=== PATIENT | female | born 1950 | race Caucasian/White ===

== ENCOUNTER 2017-12-30 16:31 | Inpatient (IN) | payer MEDICARE, OTHER ==
[~2017-12-30] VITALS: Ht 160 cm; Wt 64.1 kg
[2017-12-30 17:01] LABS: INR 1.1 INR; PROTHROMBIN TIME 11.5 SECONDS (9.0-12.0)
[2017-12-30 17:13] LABS: ALANINE AMINOTRANSFERASE 13 U/L (12-78); ALBUMIN 1.8 G/DL (3.4-5.0); ALBUMIN/GLOBULIN RATIO 0.4 (1.1-1.5); ALKALINE PHOSPHATASE 87 IU/L (46-116); ANION GAP 13 (8-16); ASPARTATE AMINO TRANSFERASE 24 U/L (10-37); BILIRUBIN,TOTAL 0.8 MG/DL (0.1-1.0); BLOOD UREA NITROGEN 15 MG/DL (7-18); BUN/CREATININE RATIO 15.2 (6.6-38.0); CALCIUM 8.7 MG/DL (8.5-10.1); CHLORIDE 100 MMOL/L (99-107); CREATININE 0.99 MG/DL (0.40-0.90); GLUCOSE 125 MG/DL (70-104); POTASSIUM 3.3 MMOL/L (3.5-5.1); SODIUM 141 MMOL/L (135-145); TOTAL CARBON DIOXIDE 27.8 MMOL/L (24-32); TOTAL PROTEIN 6.8 G/DL (6.4-8.2); eGFR 56 ML/MIN
[2017-12-30 17:54] LABS: BASOPHILS % (AUTO) 0.5 % (0-1); EOSINOPHILS % (AUTO) 0.3 % (0-6); HEMATOCRIT 32.8 % (35.0-45.0); HEMOGLOBIN 11.1 g/dl (12.0-16.0); LYMPHOCYTES # (AUTO) 1.4 X10'3 (1.1-4.8); LYMPHOCYTES % (AUTO) 26.5 % (21-51); MEAN CORPUSCULAR HEMOGLOBIN 35.7 PG (27.0-31.0); MEAN CORPUSCULAR HGB CONC 33.9 % (33.0-36.5); MEAN CORPUSCULAR VOLUME 105.1 FL (78-98); MEAN PLATELET VOLUME 9.8 FL (7.4-10.4); MONOCYTES # (AUTO) 0.4 X10'3 (0-0.9); MONOCYTES % (AUTO) 7.5 % (2-12); NEUTROPHILS # (AUTO) 3.3 X10'3 (1.8-7.7); NEUTROPHILS % (AUTO) 65.2 % (42-75); PLATELET COUNT 250 X10'3 (140-440); RED BLOOD COUNT 3.12 X10'6 (4.20-5.60); RED CELL DISTRIBUTION WIDTH 13.1 % (11.5-14.5); WHITE BLOOD COUNT 5.1 X10'3 (4.5-11.0)
[2017-12-30 17:55] LABS: CLARITY,URINE CLOUDY (Clear); COLOR,URINE YELLOW (Yellow); GLUCOSE, URINE NEGATIVE (Neg); KETONES,URINE NEGATIVE (Neg); LEUKOCYTE ESTERASE ,URINE LARGE (Neg); NITRITES, URINE POSITIVE (Neg); OCCULT BLOOD,URINE NEGATIVE (Neg); PROTEIN,URINE TRACE mg/dl (Neg)
[2017-12-30 17:59] LABS: UA COLLECTION TYPE NON-SPECIFIED
[2017-12-30 18:00] LABS: BACTERIA,URINE 3+ /HPF (Neg); SQUAMOUS EPITHELIAL CELL,UR MODERATE /LPF (FEW)
[2017-12-30 18:01] LABS: RBC,URINE 0-2 /HPF (0-2); WBC,URINE TNTC /HPF (0-4)
[2017-12-30 18:06] LABS: URINE AMPHETAMINE SCREEN NEGATIVE (Neg); URINE BARBITUATE SCREEN NEGATIVE (Neg); URINE BENZODIAZEPINES SCREEN NEGATIVE (Neg); URINE CANNABINOID SCREEN NEGATIVE (Neg); URINE COCAINE SCREEN NEGATIVE (Neg); URINE METHADONE SCREEN NEGATIVE (Neg); URINE OPIATE SCREEN NEGATIVE (Neg); URINE PHENCYCLIDINE SCREEN NEGATIVE (Neg)
[2017-12-30 18:18] LABS: ETHANOL < 0.010 GM/DL (0.0-0.010); LIPASE 136 U/L (73-393); MAGNESIUM 1.9 MG/DL (1.5-2.4)
[2017-12-30] MEDS ORDERED: CefTRIAXone 2gm/D5W 50ml 50 ML IV ONE (18:25)
[2017-12-30] MEDS ORDERED: lactulose 20gm/30ml cup PO ONE (18:25)
[2017-12-30] MEDS ORDERED: normal saline 1000ML IV soln IVB ONE (18:25)
[2017-12-30] MEDS ORDERED: NO HOME MEDS (18:55)
[2017-12-30] MEDS ORDERED: haloperidol lactate 5mg/ml inj IM PRN (20:15)
[2017-12-30] MEDS ORDERED: dextrose 50%-water 50ml dispensing syringe IV PRN (20:15)
[2017-12-30] MEDS ORDERED: magnesium hydroxide 30ml (MOM) UD suspension PO PRN (20:15)
[2017-12-30] MEDS ORDERED: LORazepam 1 MG tablet PO PRN (20:15)
[2017-12-30] MEDS ORDERED: acetaminophen 325mg tablet PO PRN (20:15)
[2017-12-30] MEDS ORDERED: thiamine 100mg/ml 2ml inj. IV ONE ×2 (20:15→20:45)
[2017-12-30] MEDS ORDERED: bisacodyl 10mg suppository rectal RC PRN (20:15)
[2017-12-30] MEDS ORDERED: NORMAL SALINE IV ONE (20:45)
[2017-12-30] MEDS ORDERED: THIAMINE IV ONE (20:45)
[2017-12-30 22:00] VITALS: BP 101/54
[2017-12-31] VITALS (8 sets, daily range): BP systolic 72–97; BP diastolic 42–59
[2017-12-31] MEDS: lactulose 20gm/30ml cup PO SCH ×2 (02:00→07:42)
[2017-12-31 05:50] LABS: BASOPHILS % (AUTO) 0.3 % (0-1); EOSINOPHILS % (AUTO) 0.8 % (0-6); HEMATOCRIT 27.7 % (35.0-45.0); HEMOGLOBIN 9.6 g/dl (12.0-16.0); LYMPHOCYTES % (AUTO) 39.8 % (21-51); MEAN CORPUSCULAR HGB CONC 34.7 % (33.0-36.5); MEAN CORPUSCULAR VOLUME 103.9 FL (78-98); MONOCYTES # (AUTO) 0.5 X10'3 (0-0.9); MONOCYTES % (AUTO) 9.1 % (2-12); NEUTROPHILS # (AUTO) 2.5 X10'3 (1.8-7.7); PLATELET COUNT 197 X10'3 (140-440); RED BLOOD COUNT 2.67 X10'6 (4.20-5.60); RED CELL DISTRIBUTION WIDTH 13.6 % (11.5-14.5)
[2017-12-31 07:01] LABS: ALANINE AMINOTRANSFERASE 11 U/L (12-78); ALBUMIN 1.3 G/DL (3.4-5.0); ALBUMIN/GLOBULIN RATIO 0.3 (1.1-1.5); ALKALINE PHOSPHATASE 64 IU/L (46-116); ANION GAP 7 (8-16); ASPARTATE AMINO TRANSFERASE 18 U/L (10-37); BILIRUBIN,TOTAL 0.5 MG/DL (0.1-1.0); BLOOD UREA NITROGEN 14 MG/DL (7-18); BUN/CREATININE RATIO 16.1 (6.6-38.0); CALCIUM 7.5 MG/DL (8.5-10.1); CHLORIDE 105 MMOL/L (99-107); CREATININE 0.87 MG/DL (0.40-0.90); GLUCOSE 87 MG/DL (70-104); MAGNESIUM 1.8 MG/DL (1.5-2.4); PHOSPHORUS 3.3 MG/DL (2.3-4.5); SODIUM 142 MMOL/L (135-145); TOTAL CARBON DIOXIDE 29.9 MMOL/L (24-32); TOTAL PROTEIN 5.3 G/DL (6.4-8.2); eGFR 65 ML/MIN
[2017-12-31 07:16] LABS: POTASSIUM 2.7 MMOL/L (3.5-5.1)
[2017-12-31] MEDS ORDERED: potassium Cl 40MEQ/NS 500ml 500 ML IV PRN (07:35)
[2017-12-31] MEDS ORDERED: potassium Cl 20 mEq SR tablet PO PRN ×2 (07:35)
[2017-12-31] MEDS: furosemide 10 MG/1 ML 10ml inj IV SCH (08:00)
[2017-12-31] MEDS: CefTRIAXone/D5W-Rocephin 1gm 50 ML IV SCH (08:12)
[2017-12-31] MEDS: spironolactone 25 MG tablet PO SCH (08:12)
[2017-12-31 17:12] LABS: LYMPHOCYTES,BODY FLUID 80 %; MONOCYTES,BODY FLUID 19 %; NEUTROPHILS,BODY FLUID 1 %
[2017-12-31 17:13] LABS: BF MESOTHELIAL CELLS FEW; BF RBC COUNT 60 /CU MM; BF WBC COUNT 121 /CU MM (0-1000); BFAPPEAR HAZY; BFCOLOR YELLOW; BFVOLUME 48 ML
[2017-12-31] MEDS: potassium Cl 40MEQ/NS 500ml 500 ML IV PRN ×2 (17:28→23:34)
[2017-12-31] MEDS: thiamine 100mg tablet PO SCH (20:05)
[2017-12-31] MEDS: lactobacillus rhamnosus 10,000 MMU CELLS/CAPSULE PO SCH (20:05)
[2018-01-01 02:00] VITALS: BP 91/55
[2018-01-01 05:41] LABS: BASOPHILS # (AUTO) 0.1 X10'3 (0-0.2); BASOPHILS % (AUTO) 1.1 % (0-1); HEMATOCRIT 29.8 % (35.0-45.0); HEMOGLOBIN 10.1 g/dl (12.0-16.0); LYMPHOCYTES # (AUTO) 1.9 X10'3 (1.1-4.8); LYMPHOCYTES % (AUTO) 37.3 % (21-51); MEAN CORPUSCULAR HEMOGLOBIN 35.8 PG (27.0-31.0); MEAN CORPUSCULAR HGB CONC 33.9 % (33.0-36.5); MEAN CORPUSCULAR VOLUME 105.4 FL (78-98); MEAN PLATELET VOLUME 9.3 FL (7.4-10.4); MONOCYTES # (AUTO) 0.4 X10'3 (0-0.9); MONOCYTES % (AUTO) 7.7 % (2-12); NEUTROPHILS # (AUTO) 2.7 X10'3 (1.8-7.7); NEUTROPHILS % (AUTO) 52.9 % (42-75); PLATELET COUNT 212 X10'3 (140-440); RED BLOOD COUNT 2.82 X10'6 (4.20-5.60); RED CELL DISTRIBUTION WIDTH 13.5 % (11.5-14.5); WHITE BLOOD COUNT 5.1 X10'3 (4.5-11.0)
[2018-01-01 06:36] LABS: ALANINE AMINOTRANSFERASE 9 U/L (12-78); ALBUMIN 1.3 G/DL (3.4-5.0); ALBUMIN/GLOBULIN RATIO 0.3 (1.1-1.5); ALKALINE PHOSPHATASE 64 IU/L (46-116); ANION GAP 5 (8-16); ASPARTATE AMINO TRANSFERASE 17 U/L (10-37); BILIRUBIN,TOTAL 0.5 MG/DL (0.1-1.0); BLOOD UREA NITROGEN 11 MG/DL (7-18); BUN/CREATININE RATIO 13.4 (6.6-38.0); CALCIUM 8.2 MG/DL (8.5-10.1); CHLORIDE 108 MMOL/L (99-107); CREATININE 0.82 MG/DL (0.40-0.90); GLUCOSE 80 MG/DL (70-104); MAGNESIUM 1.7 MG/DL (1.5-2.4); POTASSIUM 4.2 MMOL/L (3.5-5.1); SODIUM 143 MMOL/L (135-145); TOTAL CARBON DIOXIDE 29.7 MMOL/L (24-32); TOTAL PROTEIN 5.3 G/DL (6.4-8.2); eGFR 70 ML/MIN
[2018-01-01 06:39] VITALS: BP 99/56
[2018-01-01] MEDS: furosemide 10 MG/1 ML 10ml inj IV SCH (07:19)
[2018-01-01] MEDS: lactobacillus rhamnosus 10,000 MMU CELLS/CAPSULE PO SCH ×2 (07:29→19:32)
[2018-01-01] MEDS: thiamine 100mg tablet PO SCH ×2 (07:29→19:32)
[2018-01-01] MEDS: CefTRIAXone/D5W-Rocephin 1gm 50 ML IV SCH (07:30)
[2018-01-01] MEDS: folic acid 1mg tablet PO SCH (07:30)
[2018-01-01] MEDS: multivitamins, therapeutics tablet PO SCH (07:30)
[2018-01-01] MEDS: spironolactone 25 MG tablet PO SCH (07:30)
[2018-01-01] MEDS: diatr meglu/diatrizoate 30ml oral sol.-(3 dose) bottle PO SCH ×3 (09:38→15:35)
[2018-01-01] MEDS ORDERED: HYDROCORTISONE 28.35 GM CREAM.GM. RC SCH (11:50)
[2018-01-01 12:43] VITALS: BP 100/60
[2018-01-01] MEDS: hydrocortisone acetate 25mg rectal suppository RC SCH ×2 (13:33→19:32)
[2018-01-01] MEDS ORDERED: iohexol 300mg/ml 100ml inj. ONE (15:21)
[2018-01-01 17:03] VITALS: BP 102/65
[2018-01-01 19:00] VITALS: BP 101/63
[2018-01-01] MEDS ORDERED: diatr meglu/diatrizoate 30ml oral sol.-(3 dose) bottle PO SCH (21:00)
[2018-01-01 22:00] VITALS: BP 97/57
[2018-01-02 02:00] VITALS: BP 92/60
[2018-01-02 06:00] VITALS: BP 95/54
[2018-01-02 06:12] LABS: BASOPHILS # (AUTO) 0.1 X10'3 (0-0.2); BASOPHILS % (AUTO) 1.5 % (0-1); EOSINOPHILS # (AUTO) 0.1 X10'3 (0-0.9); EOSINOPHILS % (AUTO) 1.5 % (0-6); HEMATOCRIT 32.1 % (35.0-45.0); HEMOGLOBIN 10.8 g/dl (12.0-16.0); LYMPHOCYTES # (AUTO) 2.2 X10'3 (1.1-4.8); LYMPHOCYTES % (AUTO) 42.4 % (21-51); MEAN CORPUSCULAR HEMOGLOBIN 35.8 PG (27.0-31.0); MEAN CORPUSCULAR HGB CONC 33.7 % (33.0-36.5); MEAN CORPUSCULAR VOLUME 106.3 FL (78-98); MEAN PLATELET VOLUME 10.5 FL (7.4-10.4); MONOCYTES # (AUTO) 0.4 X10'3 (0-0.9); MONOCYTES % (AUTO) 7.2 % (2-12); NEUTROPHILS # (AUTO) 2.4 X10'3 (1.8-7.7); NEUTROPHILS % (AUTO) 47.4 % (42-75); PLATELET COUNT 188 X10'3 (140-440); RED BLOOD COUNT 3.02 X10'6 (4.20-5.60); RED CELL DISTRIBUTION WIDTH 13.4 % (11.5-14.5); WHITE BLOOD COUNT 5.1 X10'3 (4.5-11.0)
[2018-01-02 06:32] LABS: ALANINE AMINOTRANSFERASE 10 U/L (12-78); ALBUMIN 1.2 G/DL (3.4-5.0); ALBUMIN/GLOBULIN RATIO 0.3 (1.1-1.5); ALKALINE PHOSPHATASE 66 IU/L (46-116); ANION GAP 7 (8-16); BILIRUBIN,TOTAL 0.5 MG/DL (0.1-1.0); BLOOD UREA NITROGEN 11 MG/DL (7-18); BUN/CREATININE RATIO 15.5 (6.6-38.0); CALCIUM 7.9 MG/DL (8.5-10.1); CHLORIDE 107 MMOL/L (99-107); CREATININE 0.71 MG/DL (0.40-0.90); GLUCOSE 74 MG/DL (70-104); MAGNESIUM 1.9 MG/DL (1.5-2.4); SODIUM 140 MMOL/L (135-145); TOTAL CARBON DIOXIDE 25.9 MMOL/L (24-32); TOTAL PROTEIN 5.5 G/DL (6.4-8.2); eGFR 82 ML/MIN
[2018-01-02 06:33] LABS: ASPARTATE AMINO TRANSFERASE 26 U/L (10-37); POTASSIUM 4.2 MMOL/L (3.5-5.1)
[2018-01-02] MEDS: hydrocortisone acetate 25mg rectal suppository RC SCH ×2 (08:42→20:52)
[2018-01-02] MEDS: folic acid 1mg tablet PO SCH (08:45)
[2018-01-02] MEDS: multivitamins, therapeutics tablet PO SCH (08:45)
[2018-01-02] MEDS: thiamine 100mg tablet PO SCH ×2 (08:45→20:52)
[2018-01-02] MEDS: lactobacillus rhamnosus 10,000 MMU CELLS/CAPSULE PO SCH ×2 (08:45→20:52)
[2018-01-02 11:30] VITALS: BP 100/63
[2018-01-02] MEDS ORDERED: loperamide 2mg capsule PO PRN (11:35)
[2018-01-02] MEDS: spironolactone 25 MG tablet PO SCH (11:54)
[2018-01-02] MEDS: levoFLOXACIN 500mg tablet PO SCH (11:54)
[2018-01-02 15:00] VITALS: BP 92/55
[2018-01-02 18:00] VITALS: BP 88/57
[2018-01-03 02:00] VITALS: BP 96/62
[2018-01-03 05:15] LABS: BASOPHILS % (AUTO) 0.6 % (0-1); EOSINOPHILS # (AUTO) 0.1 X10'3 (0-0.9); EOSINOPHILS % (AUTO) 1.1 % (0-6); HEMATOCRIT 31.3 % (35.0-45.0); HEMOGLOBIN 10.6 g/dl (12.0-16.0); LYMPHOCYTES # (AUTO) 2.1 X10'3 (1.1-4.8); LYMPHOCYTES % (AUTO) 43.3 % (21-51); MEAN CORPUSCULAR HEMOGLOBIN 35.6 PG (27.0-31.0); MEAN CORPUSCULAR HGB CONC 34.1 % (33.0-36.5); MEAN CORPUSCULAR VOLUME 104.4 FL (78-98); MEAN PLATELET VOLUME 9.1 FL (7.4-10.4); MONOCYTES # (AUTO) 0.3 X10'3 (0-0.9); MONOCYTES % (AUTO) 5.6 % (2-12); NEUTROPHILS # (AUTO) 2.4 X10'3 (1.8-7.7); NEUTROPHILS % (AUTO) 49.4 % (42-75); PLATELET COUNT 220 X10'3 (140-440); RED BLOOD COUNT 2.99 X10'6 (4.20-5.60); RED CELL DISTRIBUTION WIDTH 13.4 % (11.5-14.5); WHITE BLOOD COUNT 4.8 X10'3 (4.5-11.0)
[2018-01-03 05:43] LABS: ALANINE AMINOTRANSFERASE 10 U/L (12-78); ALBUMIN 1.3 G/DL (3.4-5.0); ALBUMIN/GLOBULIN RATIO 0.3 (1.1-1.5); ALKALINE PHOSPHATASE 64 IU/L (46-116); ANION GAP 8 (8-16); ASPARTATE AMINO TRANSFERASE 19 U/L (10-37); BILIRUBIN,TOTAL 0.5 MG/DL (0.1-1.0); BLOOD UREA NITROGEN 11 MG/DL (7-18); BUN/CREATININE RATIO 13.9 (6.6-38.0); CALCIUM 7.8 MG/DL (8.5-10.1); CHLORIDE 106 MMOL/L (99-107); CREATININE 0.79 MG/DL (0.40-0.90); GLUCOSE 75 MG/DL (70-104); MAGNESIUM 1.7 MG/DL (1.5-2.4); POTASSIUM 3.8 MMOL/L (3.5-5.1); SODIUM 141 MMOL/L (135-145); TOTAL CARBON DIOXIDE 27.5 MMOL/L (24-32); TOTAL PROTEIN 5.4 G/DL (6.4-8.2); eGFR 73 ML/MIN
[2018-01-03 06:00] VITALS: BP 107/61
[2018-01-03] MEDS: multivitamins, therapeutics tablet PO SCH (08:57)
[2018-01-03] MEDS: lactobacillus rhamnosus 10,000 MMU CELLS/CAPSULE PO SCH (08:57)
[2018-01-03] MEDS: spironolactone 25 MG tablet PO SCH (08:57)
[2018-01-03] MEDS: thiamine 100mg tablet PO SCH (08:57)
[2018-01-03] MEDS: hydrocortisone acetate 25mg rectal suppository RC SCH (08:57)
[2018-01-03] MEDS: folic acid 1mg tablet PO SCH (08:57)
[2018-01-03] MEDS: levoFLOXACIN 500mg tablet PO SCH (11:50)
== END 2018-01-03 13:30 | DRG 432 ==
LOC: ER 16:31 → ED HOLD 20:41 → PCU 3S 21:27
PROVIDERS: ADMIT Emergency Medicine; ATTEND Family Medicine
PROC: 0W9G3ZZ Drainage of Peritoneal Cavity, Percutaneous Approach (ICD-10-PCS; principal; 2017-12-31)
PROC: BW211ZZ Computerized Tomography (CT Scan) of Abdomen and Pelvis using Low Osmolar Contrast (ICD-10-PCS; 2018-01-01)
DX: K70.31 Alcoholic cirrhosis of liver with ascites (principal); G93.40 Encephalopathy, unspecified; E43 Unspecified severe protein-calorie malnutrition; N39.0 Urinary tract infection, site not specified; K76.6 Portal hypertension; N17.9 Acute kidney failure, unspecified; B96.20 Unspecified Escherichia coli [E. coli] as the cause of diseases classified elsewhere; Z66 Do not resuscitate; K62.89 Other specified diseases of anus and rectum; D63.8 Anemia in other chronic diseases classified elsewhere; E11.9 Type 2 diabetes mellitus without complications; E87.6 Hypokalemia; F10.20 Alcohol dependence, uncomplicated; K59.00 Constipation, unspecified; K64.4 Residual hemorrhoidal skin tags; R19.7 Diarrhea, unspecified; Z68.25 Body mass index [BMI] 25.0-25.9, adult
CPT/HCPCS: 36415; 49083; 70450; 71045; 74018; 74176; 74177; 80053; 80305; 80320; 81001; 82140; 82948; 83605; 83690; 83735; 84100; 84484; 85025; 85610; 87040; 87070; 87077; 87088; 87186; 89051; 93005; 96365; 97116; 97162; 97530; 99285; A6250; J0696; J3411; J3480; J7030; J7040; Q9963; Q9967

== ENCOUNTER 2020-10-30 14:04 | Emergency (ER) | payer MEDICARE ==
[~2020-10-30] VITALS: Ht 160 cm; Wt 63.6 kg
[~2020-10-30 14:04] MED LIST: NO HOME MEDS
[2020-10-30 14:42] VITALS: BP 115/65
[2020-10-30] MEDS ORDERED: HYDROcodone/acetaminophen 5mg/325mg tablet PO ONE (15:20)
[2020-10-30 15:42] LABS: CLARITY,URINE CLOUDY (Clear); COLOR,URINE YELLOW (Yellow); GLUCOSE, URINE NEGATIVE (Neg); KETONES,URINE TRACE mg/dl (Neg); LEUKOCYTE ESTERASE ,URINE MODERATE (Neg); NITRITES, URINE POSITIVE (Neg); OCCULT BLOOD,URINE NEGATIVE (Neg); PROTEIN,URINE 30 mg/dl (Neg)
[2020-10-30 15:44] LABS: UA COLLECTION TYPE CLN CATCH MIDSTREAM
[2020-10-30] MEDS ORDERED: HYDR-3965 PO (15:50)
[2020-10-30] MEDS ORDERED: CEPH250T PO (15:50)
[2020-10-30 15:58] LABS: BACTERIA,URINE 4+ /HPF (Neg); WBC,URINE TNTC /HPF (0-4)
[2020-10-30 15:59] LABS: RBC,URINE 0-2 /HPF (0-2); SQUAMOUS EPITHELIAL CELL,UR FEW /LPF (FEW)
[2020-10-30 16:00] LABS: MUCUS STRANDS FEW /LPF (Neg)
== END 2020-10-30 15:56 | disposition home or self-care (01) ==
LOC: ER 14:05
DX: N39.0 Urinary tract infection, site not specified (principal); M54.5 Low back pain; R31.9 Hematuria, unspecified; E11.9 Type 2 diabetes mellitus without complications; F17.200 Nicotine dependence, unspecified, uncomplicated; Z72.89 Other problems related to lifestyle; Z85.9 Personal history of malignant neoplasm, unspecified; Z79.2 Long term (current) use of antibiotics
CPT/HCPCS: 81001; 87077; 87088; 87186; 99284

== ENCOUNTER 2021-05-12 14:26 | Observation (INO) | payer MEDICARE, MEDICAID ==
[~2021-05-12] VITALS: Ht 160 cm; Wt 65.0 kg
--- NOTE | 2021-05-12 01:00 | NUR ---
UNABLE TO GET BLOOD BLOOD TRANSFUSION NOT COMPLETED BY RN IN THE ER WHO GAVE THE BLOOD. PT ARRIVED TO THE FLOOR INC OF STOOL AT 2235 WAS CLEANED UP MADE COMFORTABLE AND ADMIT QUESTIONS DONE. AFTER ADMIT DONE PT SET UP WITH A WICK AND WAS INC OF STOOL AGAIN. SKIN CARE PROVIDED AND CALLED ER REGARDING GETTING THE TRANSFUSION RECORD COMPLETED, AND TALKED TO MELISSA REGARDING IT.
[~2021-05-12 14:26] MED LIST changes: -NO HOME MEDS; +PANT40SU2 PO
[2021-05-12 15:58] LABS: BASOPHILS % (AUTO) 0.9 % (0-1); EOSINOPHILS % (AUTO) 0.6 % (0-6); LYMPHOCYTES # (AUTO) 0.7 X10'3 (1.1-4.8); LYMPHOCYTES % (AUTO) 18.3 % (21-51); MEAN CORPUSCULAR HEMOGLOBIN 32.2 PG (27.0-31.0); MEAN CORPUSCULAR HGB CONC 34.6 g/dL (33.0-36.5); MEAN CORPUSCULAR VOLUME 92.9 FL (78-98); MEAN PLATELET VOLUME 9.4 FL (7.4-10.4); MONOCYTES # (AUTO) 0.2 X10'3 (0-0.9); MONOCYTES % (AUTO) 5.2 % (2-12); NEUTROPHILS # (AUTO) 3.1 X10'3 (1.8-7.7); PLATELET COUNT 262 X10'3 (140-440); RED BLOOD COUNT 1.65 X10'6 (4.20-5.60); RED CELL DISTRIBUTION WIDTH 15.5 % (11.5-14.5); WHITE BLOOD COUNT 4.1 X10'3 (4.5-11.0)
[2021-05-12 16:01] LABS: HEMATOCRIT 15.3 % (35.0-45.0); HEMOGLOBIN 5.3 g/dl (12.0-16.0)
--- NOTE | 2021-05-12 16:21 | NUR ---
Hgb 5.3 Hct 15.3 RN informed
[2021-05-12 16:22] LABS: ALANINE AMINOTRANSFERASE 12 U/L (12-78); ALBUMIN 2.1 G/DL (3.4-5.0); ALBUMIN/GLOBULIN RATIO 0.4 (1.1-1.5); ALKALINE PHOSPHATASE 91 IU/L (46-116); ANION GAP 12 (8-16); ASPARTATE AMINO TRANSFERASE 11 U/L (10-37); BILIRUBIN,TOTAL 1.1 MG/DL (0.1-1.0); BLOOD UREA NITROGEN 32 MG/DL (7-18); CALCIUM 8.4 MG/DL (8.5-10.1); CHLORIDE 101 MMOL/L (99-107); CREATININE 1.23 MG/DL (0.40-0.90); GLUCOSE 146 MG/DL (70-104); POTASSIUM 3.8 MMOL/L (3.5-5.1); SODIUM 135 MMOL/L (135-145); TOTAL CARBON DIOXIDE 21.7 MMOL/L (24-32); TOTAL PROTEIN 7.5 G/DL (6.4-8.2); eGFR 43 ML/MIN
[2021-05-12 16:27] LABS: MAGNESIUM 1.9 MG/DL (1.5-2.4)
[2021-05-12] MEDS ORDERED: pantoprazole 40 MG vial IV ONE (16:30)
[2021-05-12 16:39] LABS: PARTIAL THROMBOPLASTIN TIME 32 SECONDS (22-32)
[2021-05-12 16:49] LABS: OCCULT BLOOD STOOL NEGATIVE (Neg)
[2021-05-12] MEDS ORDERED: magnesium hydroxide 30ml (MOM) UD suspension PO PRN (17:20)
[2021-05-12] MEDS ORDERED: normal saline 1000ml 1,000 ML IV SCH (17:20)
[2021-05-12] MEDS ORDERED: mag hydrox/Alum hydrox/simeth 30ml oral suspension PO PRN (17:20)
[2021-05-12] MEDS ORDERED: acetaminophen 325mg tablet PO PRN (17:20)
[2021-05-12] MEDS ORDERED: ondansetron/PF 4mg/2ml inj IV PRN (17:20)
[2021-05-12 17:21] LABS: GLUCOSE, URINE NEGATIVE (Neg); NITRITES, URINE NEGATIVE (Neg); PROTEIN,URINE NEGATIVE (Neg)
[2021-05-12 17:28] LABS: UA COLLECTION TYPE CLN CATCH MIDSTREAM
[2021-05-12 17:29] LABS: CLARITY,URINE CLOUDY (Clear); COLOR,URINE Yellow (Yellow); KETONES,URINE Trace mg/dl (Neg); LEUKOCYTE ESTERASE ,URINE LARGE (Neg); OCCULT BLOOD,URINE NEGATIVE (Neg); UROBILINOGEN,URINE >=8.0 E.U/dL (0.2-1.0)
[2021-05-12 17:44] LABS: BACTERIA,URINE 2+ /HPF (Neg); RBC,URINE 0-2 /HPF (0-2); SQUAMOUS EPITHELIAL CELL,UR FEW /LPF (FEW)
[2021-05-12 18:30] VITALS: BP 109/58
[2021-05-12] MEDS ORDERED: ZINC100T2 PO (18:38)
[2021-05-12] MEDS ORDERED: SULF1TAB49 PO (18:38)
[2021-05-12] MEDS ORDERED: CHOL100025 PO (18:39)
[2021-05-12] MEDS ORDERED: FERR-39 PO (18:45)
[2021-05-12] MEDS ORDERED: ASCO-134 PO (18:45)
[2021-05-12] MEDS ORDERED: OMEP-50 PO (18:45)
[2021-05-12 18:58] VITALS: BP 118/58
[2021-05-12] MEDS: docusate sod 100mg capsule PO SCH (20:00)
--- NOTE | 2021-05-12 21:16 | NUR ---
vitals put in regular flow sheet due to confusion trying to start infusion and lack of training.
--- NOTE | 2021-05-12 22:30 | NUR ---
Patient in room ED 11. I have received report from Mary Kate Saldana Rn and had the opportunity to ask questions and will assume patient care upon arrival to the floor. Addendum: 05/12/21 at 2245 by Celia Turcios RN Amended: Links added.
[2021-05-12 22:35] VITALS: BP 101/53
--- NOTE | 2021-05-12 22:35 | NUR ---
pt arrived to the floor and transferred from [facility] to bed with 2 people. pt tolerated fair. inc of stool and urine and cleaned up at this time and vitals taken. pt given pillow and assisted to comfort.
[2021-05-12 22:57] VITALS: BP 99/52
--- NOTE | 2021-05-12 23:00 | NUR ---
pt hx inc of urine and per request set up with pure wick after cleaning up for inc of small amount of stool.
[2021-05-13] VITALS (9 sets, daily range): BP systolic 88–114; BP diastolic 46–57
--- NOTE | 2021-05-13 01:44 | NUR ---
TOMAS Holt in the ER was unable to scan blood and Nelly Lemus asked me to try to scan the blood with my mobile computer. I successfully scanned the blood and she continued with care of the patient. The same nurse handed off report to TOMAS Murray after the blood was transfused and I called report to the floor for him as he had several admits at once. TOMAS Yang for surgical just cld me because the blood transfusion was never ended and vitals not charted. I passed this info on to TOMAS Murray
--- NOTE | 2021-05-13 06:20 | NUR ---
Problems reprioritized. Patient report given, questions answered & plan of care reviewed with JULIO CÉSAR MARIN. Addendum: 05/13/21 at 0714 by Celia Turcios RN Amended: Links added.
--- NOTE | 2021-05-13 06:32 | NUR ---
I TOOK OVER FOR THE SECTION OF SHANIA (RN) AT 2100. FOR THIS PATIENT THE FIRST UNIT HAD BEEN TRANSFUSED AND SALINE FLUSHED. SINCE I WAS UNSURE OF THE END TIME OF THE FIRST UNIT OF BLOOD GIVEN BY THE PREVIOUS RN I DID NOT CHART A STOP TIME.
[2021-05-13] MEDS: docusate sod 100mg capsule PO SCH (08:00)
--- NOTE | 2021-05-13 08:58 | NUR ---
Patient refused colace today. She states "Oh no, I will be pooping all day!"
[2021-05-13 09:53] LABS: BASOPHILS % (AUTO) 0.4 % (0-1); EOSINOPHILS % (AUTO) 0.7 % (0-6); HEMOGLOBIN 7.7 g/dl (12.0-16.0); LYMPHOCYTES # (AUTO) 0.7 X10'3 (1.1-4.8); LYMPHOCYTES % (AUTO) 18.6 % (21-51); MEAN CORPUSCULAR HEMOGLOBIN 32.4 PG (27.0-31.0); MEAN CORPUSCULAR HGB CONC 34.9 g/dL (33.0-36.5); MEAN CORPUSCULAR VOLUME 92.8 FL (78-98); MEAN PLATELET VOLUME 9.1 FL (7.4-10.4); MONOCYTES # (AUTO) 0.2 X10'3 (0-0.9); MONOCYTES % (AUTO) 4.7 % (2-12); NEUTROPHILS # (AUTO) 2.9 X10'3 (1.8-7.7); NEUTROPHILS % (AUTO) 75.6 % (42-75); PLATELET COUNT 270 X10'3 (140-440); RED BLOOD COUNT 2.36 X10'6 (4.20-5.60); RED CELL DISTRIBUTION WIDTH 15.1 % (11.5-14.5); WHITE BLOOD COUNT 3.9 X10'3 (4.5-11.0)
[2021-05-13 09:56] LABS: HEMATOCRIT 21.9 % (35.0-45.0)
[2021-05-13 09:59] LABS: ANION GAP 6 (8-16); BLOOD UREA NITROGEN 29 MG/DL (7-18); BUN/CREATININE RATIO 25.2 (6.6-38.0); CALCIUM 8.4 MG/DL (8.5-10.1); CHLORIDE 106 MMOL/L (99-107); CREATININE 1.15 MG/DL (0.40-0.90); GLUCOSE 162 MG/DL (70-104); SODIUM 137 MMOL/L (135-145); TOTAL CARBON DIOXIDE 24.6 MMOL/L (24-32); eGFR 47 ML/MIN
--- NOTE | 2021-05-13 10:22 | NUR ---
Repeat H/H after transfusion was 7.7/21.9. I went for my break, relayed this to Maurisio MARIN who's covering for me. Maurisio MARIN relayed this result to Dr. Johnson, she told me that Dr. Johnson seen the result and said that "she can go!". Patient's daughter Paola has been notified about the discharge to [facility] today.
--- NOTE | 2021-05-13 11:41 | NUR ---
Diabetes consult: A1C 7.3. Provided pt w/ written and verbal diabetes education w/ RD contact info. Pt receptive of information. Will continue to monitor. Addendum: 05/13/21 at [address] Amended: Links added.
--- NOTE | 2021-05-13 12:35 | NUR ---
Report given to KAYLA Sahni from [facility]. Awaiting for the pharmacy picking technician around 1:00pm
== END 2021-05-13 13:50 ==
LOC: ER 14:26 → ED HOLD 17:20 → SUR 3N 22:30
PROVIDERS: ADMIT Family Medicine; ATTEND Family Medicine
DX: D64.9 Anemia, unspecified (principal); G89.29 Other chronic pain; M54.9 Dorsalgia, unspecified; E11.9 Type 2 diabetes mellitus without complications; N39.0 Urinary tract infection, site not specified; F10.10 Alcohol abuse, uncomplicated; Z86.16 Personal history of COVID-19; Z88.0 Allergy status to penicillin; Z87.891 Personal history of nicotine dependence; Z79.899 Other long term (current) drug therapy; Z87.19 Personal history of other diseases of the digestive system
CPT/HCPCS: 36415; 36430; 80048; 80053; 81001; 82272; 82948; 83036; 83735; 84484; 85025; 85610; 85730; 86870; 86885; 86900; 86901; 86922; 87081; 87088; 93005; 96361; 96374; 99284; C9113; G0378; J7030; P9016

== ENCOUNTER 2021-05-30 08:37 | Inpatient (IN) | payer MEDICARE, OTHER ==
[~2021-05-30] VITALS: Ht 160 cm; Wt 63.6 kg
[2021-05-30] VITALS (16 sets, daily range): BP systolic 105–143; BP diastolic 41–69
[~2021-05-30 08:37] MED LIST changes: +ASCO-134 PO; +CHOL100025 PO; +FERR-39 PO; +OMEP-50 PO; -PANT40SU2 PO; +SULF1TAB49 PO; +ZINC100T2 PO
[2021-05-30] MEDS ORDERED: pantoprazole 40 MG vial IV ONE (09:00)
[2021-05-30] MEDS ORDERED: normal saline 1000ML IV soln IVB ONE (09:00)
[2021-05-30 10:06] LABS: BASOPHILS % (AUTO) 0.3 % (0-1); EOSINOPHILS # (AUTO) 0.1 X10'3 (0-0.9); LYMPHOCYTES # (AUTO) 1.4 X10'3 (1.1-4.8); LYMPHOCYTES % (AUTO) 39.4 % (21-51); MEAN CORPUSCULAR HEMOGLOBIN 29.4 PG (27.0-31.0); MEAN CORPUSCULAR HGB CONC 33.3 g/dL (33.0-36.5); MEAN CORPUSCULAR VOLUME 88.2 FL (78-98); MEAN PLATELET VOLUME 8.2 FL (7.4-10.4); MONOCYTES # (AUTO) 0.2 X10'3 (0-0.9); MONOCYTES % (AUTO) 6.8 % (2-12); NEUTROPHILS # (AUTO) 1.8 X10'3 (1.8-7.7); NEUTROPHILS % (AUTO) 51.5 % (42-75); PLATELET COUNT 321 X10'3 (140-440); RED BLOOD COUNT 2.08 X10'6 (4.20-5.60); WHITE BLOOD COUNT 3.6 X10'3 (4.5-11.0)
[2021-05-30 10:09] LABS: HEMOGLOBIN 6.1 g/dl (12.0-16.0)
[2021-05-30 10:10] LABS: HEMATOCRIT 18.4 % (35.0-45.0)
[2021-05-30 10:18] LABS: ALANINE AMINOTRANSFERASE 9 U/L (12-78); ALBUMIN 2.4 G/DL (3.4-5.0); ALBUMIN/GLOBULIN RATIO 0.5 (1.1-1.5); ALKALINE PHOSPHATASE 83 IU/L (46-116); ANION GAP 6 (8-16); ASPARTATE AMINO TRANSFERASE 10 U/L (10-37); BILIRUBIN,TOTAL 0.3 MG/DL (0.1-1.0); BLOOD UREA NITROGEN 15 MG/DL (7-18); BUN/CREATININE RATIO 15.5 (6.6-38.0); CALCIUM 8.8 MG/DL (8.5-10.1); CHLORIDE 106 MMOL/L (99-107); CREATININE 0.97 MG/DL (0.40-0.90); GLUCOSE 134 MG/DL (70-104); POTASSIUM 3.7 MMOL/L (3.5-5.1); SODIUM 140 MMOL/L (135-145); TOTAL CARBON DIOXIDE 27.6 MMOL/L (24-32); TOTAL PROTEIN 7.6 G/DL (6.4-8.2); eGFR 57 ML/MIN
[2021-05-30] MEDS ORDERED: magnesium 4gm in 100ml NS 100 ML IV PRN (12:40)
[2021-05-30] MEDS ORDERED: acetaminophen 325mg tablet PO PRN (12:40)
[2021-05-30] MEDS ORDERED: ondansetron/PF 4mg/2ml inj IV PRN (12:40)
[2021-05-30] MEDS ORDERED: potassium Cl 40MEQ/1/2NS 520ml 520 ML IV PRN ×2 (12:40)
[2021-05-30] MEDS ORDERED: potassium Cl 20 mEq SR tablet PO PRN ×2 (12:40)
[2021-05-30] MEDS ORDERED: magnesium 2GM in 50ml NS 50 ML IV PRN (12:40)
--- NOTE | 2021-05-30 13:20 | NUR ---
PATIENT IS ASSIGNED TO SURGICAL UNIT, ROOM 348B. NURSE STATES THAT THE ROOM IS NOT CLEAN YET AND THE NURSE (BALDEV) WILL NOT BE GETTING REPORT UNTIL THE ROOM IS READY.
[2021-05-30] MEDS ORDERED: DOCU100C40 PO (14:15)
[2021-05-30] MEDS ORDERED: ONDA4TAB6 PO (14:15)
--- NOTE | 2021-05-30 14:15 | NUR ---
ATTEMPTED TO CALL REPORT TO SURGICAL UNIT, TOMAS [facility]. NURSE IS NOT TAKING REPORT AT THIS TIME AND WILL CALL BACK. DR. MAHMOOD CALLED TO INQUIRE ABOUT THE LAST TIME PATIENT ATE. PATIENT STATES SHE ATE A BOWL OF CEREAL AT 0700 THIS MORNING. PATIENT REMAINS NPO AND THE BLOOD IS READY IN BLOOD BANK. BLOOD CONSENT OBTAINED FROM PATIENT.
[2021-05-30] MEDS ORDERED: fentaNYL/PF 50MCG/1 ML 2ML syringe ONE (15:12)
[2021-05-30] MEDS ORDERED: MIDAZolam 1 MG/ML 5ML VIAL ONE (15:13)
[2021-05-30] MEDS ORDERED: LIDOcaine Viscous 15ml cup ONE (15:13)
--- NOTE | 2021-05-30 15:24 | NUR ---
GI lab came to take pt. for endoscopy with Dr. Danielle.
[2021-05-30] MEDS: pantoprazole 40MG/NS 100ML BAG 100 ML IV SCH ×2 (16:00→22:13)
[2021-05-30] MEDS ORDERED: PEG 3350/Na sulf,bicarb,Cl/KCl oral sol 4 liter bottle PO ONE (16:15)
--- NOTE | 2021-05-30 16:43 | NUR ---
Pt arrive to floor. Negtive EGD. Need to prep pt. for colonoscopy tomorrow. NPO after midnight
--- NOTE | 2021-05-30 16:55 | NUR ---
Blood started at a rate of 60. VSS at this time
--- NOTE | 2021-05-30 18:57 | NUR ---
Patient in room [facility]. I have received report from BALDEV MARIN and had the opportunity to ask questions and assume patient care.
[2021-05-30] MEDS: K and/or MAG REPLACEMENT MC SCH (20:00)
[2021-05-30] MEDS: docusate sod 100mg capsule PO SCH (20:00)
[2021-05-31] MEDS: pantoprazole 40MG/NS 100ML BAG 100 ML IV SCH ×3 (02:30→11:00)
--- NOTE | 2021-05-31 03:47 | NUR ---
PATIENT REFUSING TO TAKE THE BOWEL PREP. GOLYTELY STARTED BUT PATIENT RELUCTANT TO DRINK THE FLUIDS. EDUCATED AND CHARGE NURSE NOTIFIED. WILL CONTINUE TO ENCOURAGE PATIENT.
--- NOTE | 2021-05-31 06:22 | NUR ---
Patient in room [facility]. I have received report from Amanda MARIN and had the opportunity to ask questions and assume patient care.
--- NOTE | 2021-05-31 06:25 | NUR ---
Problems reprioritized. Patient report given, questions answered & plan of care reviewed with ISIDRO MARIN.
[2021-05-31 06:27] LABS: HEMATOCRIT 27.9 % (35.0-45.0); HEMOGLOBIN 9.9 g/dl (12.0-16.0); MEAN CORPUSCULAR HGB CONC 35.4 g/dL (33.0-36.5); MEAN CORPUSCULAR VOLUME 87.6 FL (78-98); MEAN PLATELET VOLUME 7.6 FL (7.4-10.4); PLATELET COUNT 283 X10'3 (140-440); RED BLOOD COUNT 3.19 X10'6 (4.20-5.60); RED CELL DISTRIBUTION WIDTH 15.3 % (11.5-14.5); WHITE BLOOD COUNT 3.8 X10'3 (4.5-11.0)
[2021-05-31 06:38] LABS: ALANINE AMINOTRANSFERASE 11 U/L (12-78); ALBUMIN 2.4 G/DL (3.4-5.0); ALBUMIN/GLOBULIN RATIO 0.5 (1.1-1.5); ALKALINE PHOSPHATASE 76 IU/L (46-116); ANION GAP 9 (8-16); ASPARTATE AMINO TRANSFERASE 12 U/L (10-37); BILIRUBIN,TOTAL 0.7 MG/DL (0.1-1.0); BLOOD UREA NITROGEN 10 MG/DL (7-18); BUN/CREATININE RATIO 12.2 (6.6-38.0); CALCIUM 8.5 MG/DL (8.5-10.1); CHLORIDE 108 MMOL/L (99-107); CREATININE 0.82 MG/DL (0.40-0.90); GLUCOSE 107 MG/DL (70-104); SODIUM 142 MMOL/L (135-145); TOTAL CARBON DIOXIDE 24.9 MMOL/L (24-32); eGFR 69 ML/MIN
[2021-05-31] MEDS: docusate sod 100mg capsule PO SCH (07:42)
[2021-05-31 08:32] VITALS: BP 131/62
[2021-05-31] MEDS: K and/or MAG REPLACEMENT MC SCH (08:32)
[2021-05-31 09:22] LABS: % IRON SATURATION 63 % (11-46); IRON 122 UG/DL (49-151); TOTAL IRON BINDING CAPACITY 194 UG/DL (259-388)
[2021-05-31] MEDS ORDERED: OMEP-50 PO (09:51)
[2021-05-31 11:31] VITALS: BP 150/62
[2021-05-31 12:23] LABS: HEMATOCRIT 28.6 % (35.0-45.0); HEMOGLOBIN 10.2 g/dl (12.0-16.0); MEAN CORPUSCULAR HGB CONC 35.8 g/dL (33.0-36.5); MEAN CORPUSCULAR VOLUME 86.5 FL (78-98); MEAN PLATELET VOLUME 7.8 FL (7.4-10.4); PLATELET COUNT 287 X10'3 (140-440); RED BLOOD COUNT 3.31 X10'6 (4.20-5.60); RED CELL DISTRIBUTION WIDTH 15.3 % (11.5-14.5); WHITE BLOOD COUNT 4.1 X10'3 (4.5-11.0)
--- NOTE | 2021-05-31 13:35 | NUR ---
Patient discharged, IV discontinued, VSS stable, A&Ox4, Report called to facility.
== END 2021-05-31 13:28 | DRG 379 ==
LOC: ER 08:37 → ED HOLD 12:47 → SUR 3N 14:41
PROVIDERS: ADMIT Family Medicine; ATTEND Family Medicine
PROC: 30233N1 Transfusion of Nonautologous Red Blood Cells into Peripheral Vein, Percutaneous Approach (ICD-10-PCS; principal; 2021-05-30)
PROC: 0DB68ZX Excision of Stomach, Via Natural or Artificial Opening Endoscopic, Diagnostic (ICD-10-PCS; 2021-05-30)
DX: K29.71 Gastritis, unspecified, with bleeding (principal); E11.9 Type 2 diabetes mellitus without complications; Z66 Do not resuscitate; D72.819 Decreased white blood cell count, unspecified; D64.9 Anemia, unspecified; J44.9 Chronic obstructive pulmonary disease, unspecified; F10.10 Alcohol abuse, uncomplicated; Z87.891 Personal history of nicotine dependence; Z88.0 Allergy status to penicillin; Z79.899 Other long term (current) drug therapy; Z82.49 Family history of ischemic heart disease and other diseases of the circulatory system
CPT/HCPCS: 36415; 36430; 43239; 71045; 73600; 80053; 83540; 83550; 83735; 84484; 85025; 85027; 85610; 86880; 86885; 86900; 86901; 86922; 87081; 88305; 88342; 96361; 96374; 97161; 97530; 99152; 99285; C9113; G0378; J2250; J3010; J7030; J7040; P9016

== ENCOUNTER 2023-06-11 10:53 | Emergency (ER) | payer MEDICARE, OTHER ==
[~2023-06-11] VITALS: Ht 160 cm; Wt 81.4 kg
[~2023-06-11 10:53] MED LIST changes: -ASCO-134 PO; -CHOL100025 PO; +DOCU100C40 PO; -OMEP-50 PO; +OMEP20CA16 PO; +ONDA4TAB6 PO; -SULF1TAB49 PO; -ZINC100T2 PO
[2023-06-11 11:00] VITALS: BP 140/77; PULSE 65; TEMP 98; O2SAT 97
[2023-06-11 11:28] LABS: BILIRUBIN,URINE SMALL (Neg); CLARITY,URINE CLOUDY (Clear); COLOR,URINE YELLOW (Yellow); GLUCOSE, URINE NEGATIVE (Neg); KETONES,URINE 15 mg/dl (Neg); LEUKOCYTE ESTERASE ,URINE LARGE (Neg); NITRITES, URINE NEGATIVE (Neg); OCCULT BLOOD,URINE TRACE-INTACT (Neg); PH,URINE 5.5 (4.8-8.0); PROTEIN,URINE 30 mg/dl (Neg); UROBILINOGEN,URINE 0.2 E.U/dL (0.2-1.0)
[2023-06-11 11:31] LABS: UA COLLECTION TYPE CLN CATCH MIDSTREAM
[2023-06-11 11:33] LABS: BACTERIA,URINE 4+ /HPF (Neg); MUCUS STRANDS FEW /LPF (Neg); SQUAMOUS EPITHELIAL CELL,UR MANY /LPF (FEW); WBC,URINE 50-100 /HPF (0-4)
[2023-06-11 11:44] LABS: BASOPHILS # (AUTO) 0.1 X10'3 (0-0.2); BASOPHILS % (AUTO) 0.9 % (0-1); EOSINOPHILS % (AUTO) 0.6 % (0-6); HEMATOCRIT 44.6 % (35.0-45.0); HEMOGLOBIN 15.2 g/dl (12.0-16.0); LYMPHOCYTES # (AUTO) 2.1 X10'3 (1.1-4.8); LYMPHOCYTES % (AUTO) 23.8 % (21-51); MEAN CORPUSCULAR HEMOGLOBIN 31.4 PG (27.0-31.0); MEAN CORPUSCULAR VOLUME 92.2 FL (78-98); MEAN PLATELET VOLUME 9.4 FL (7.4-10.4); MONOCYTES # (AUTO) 0.3 X10'3 (0-0.9); MONOCYTES % (AUTO) 3.6 % (2-12); NEUTROPHILS # (AUTO) 6.4 X10'3 (1.8-7.7); NEUTROPHILS % (AUTO) 71.1 % (42-75); PLATELET COUNT 226 X10'3 (140-440); RED BLOOD COUNT 4.84 X10'6 (4.20-5.60); RED CELL DISTRIBUTION WIDTH 14.4 % (11.5-14.5); WHITE BLOOD COUNT 8.9 X10'3 (4.5-11.0)
[2023-06-11 11:52] VITALS: RESP 17
[2023-06-11 12:00] LABS: ALANINE AMINOTRANSFERASE 6 U/L (12-78); ALBUMIN 3.5 G/DL (3.4-5.0); ALBUMIN/GLOBULIN RATIO 0.8 (1.1-1.5); ALKALINE PHOSPHATASE 185 IU/L (46-116); ANION GAP 13 (8-16); ASPARTATE AMINO TRANSFERASE 11 U/L (10-37); BILIRUBIN,TOTAL 1.1 MG/DL (0.1-1.0); BLOOD UREA NITROGEN 13 MG/DL (7-18); BUN/CREATININE RATIO 10.7 (10.0-20.0); CALCIUM 8.9 MG/DL (8.5-10.1); CHLORIDE 100 MMOL/L (99-107); CREATININE 1.21 MG/DL (0.40-0.90); GLUCOSE 217 MG/DL (70-104); LIPASE 48 U/L (16-77); POTASSIUM 3.8 MMOL/L (3.5-5.1); SODIUM 135 MMOL/L (135-145); TOTAL CARBON DIOXIDE 22.5 MMOL/L (24-32); TOTAL PROTEIN 7.9 G/DL (6.4-8.2); eCRCL 35 ML/MIN; eGFR 44 ML/MIN
[2023-06-11] MEDS ORDERED: morphine 4 MG/ML inj SYRINge IV PRN (12:20)
[2023-06-11] MEDS ORDERED: ondansetron/PF 4mg/2ml inj IV ONE (12:20)
[2023-06-11] MEDS: methylPREDNISolone sod succ 125mg/2ml vial IV ONE ×2 (12:20→13:41)
[2023-06-11] MEDS: normal saline 1000ML IV soln IVB ONE ×2 (12:20→13:41)
[2023-06-11] MEDS ORDERED: iohexol 300mg/ml 100ml inj. ONE (12:34)
[2023-06-11] MEDS ORDERED: METH4TAB81 PO (13:53)
[2023-06-11] MEDS ORDERED: CEPH-585 PO (13:53)
[2023-06-11] MEDS ORDERED: HYDR-3965 PO (13:53)
== END 2023-06-11 14:40 | disposition home or self-care (01) ==
LOC: ER 10:54
DX: M54.32 Sciatica, left side (principal); K29.70 Gastritis, unspecified, without bleeding; N39.0 Urinary tract infection, site not specified; J44.9 Chronic obstructive pulmonary disease, unspecified; G89.29 Other chronic pain; Z88.0 Allergy status to penicillin; Z79.899 Other long term (current) drug therapy
CPT/HCPCS: 36415; 74177; 80053; 81001; 83690; 85025; 96361; 96374; 99285; J2930; J3490; J7030; Q9967; 93005

== ENCOUNTER 2023-06-19 09:17 | Emergency (ER) | payer MEDICARE, OTHER ==
[~2023-06-19] VITALS: Ht 160 cm; Wt 81.0 kg
[~2023-06-19 09:17] MED LIST changes: +CEPH-585 PO; +HYDR-3965 PO; +METH4TAB81 PO
[2023-06-19 09:25] VITALS: TEMP 97.6
[2023-06-19 10:00] VITALS: BP 118/69; PULSE 77; RESP 16; O2SAT 99
[2023-06-19] MEDS ORDERED: baclofen 10mg tablet PO ONE (11:00)
[2023-06-19] MEDS ORDERED: pantoprazole 40mg Tablet.DR PO ONE (11:10)
[2023-06-19] MEDS ORDERED: BACL-11 PO (11:46)
--- NOTE | 2023-06-21 11:17 | NUR ---
RX FOR BACLOFEN 10 MG I PO Q8 HOURS PRN, #6 NO REFILLS CALLED TO [facility] ON [address] PHONE # [phone]. INITIAL RX WAS SENT TO [facility] ON DATE OF VISIT. [facility] NO LONGER TAKES PRIVATE RX'S ONLY PROVIDES MEDS FOR SN[facility].
== END 2023-06-19 12:14 | disposition home or self-care (01) ==
LOC: ER 09:18
DX: M25.561 Pain in right knee (principal); M25.562 Pain in left knee; R74.8 Abnormal levels of other serum enzymes; K74.60 Unspecified cirrhosis of liver; J44.9 Chronic obstructive pulmonary disease, unspecified; E11.9 Type 2 diabetes mellitus without complications; G89.29 Other chronic pain
CPT/HCPCS: 99283

== ENCOUNTER 2024-06-28 12:24 | Emergency (ER) | payer MEDICARE, OTHER, MEDICAID ==
[~2024-06-28] VITALS: Ht 160 cm; Wt 79.5 kg
[~2024-06-28 12:24] MED LIST changes: +BACL-11 PO; -CEPH-585 PO; -HYDR-3965 PO
[2024-06-28 12:34] VITALS: BP 143/82; PULSE 89; TEMP 97.5; O2SAT 96
[2024-06-28] MEDS: dexamethasone sod phosphate 10mg/ml inj IM STA (15:45)
[2024-06-28 15:50] LABS: BILIRUBIN,URINE NEGATIVE (Neg); CLARITY,URINE SLIGHTLY CLOUDY (Clear); COLOR,URINE YELLOW (Yellow); GLUCOSE, URINE >=1000 mg/dl (Neg); KETONES,URINE NEGATIVE (Neg); LEUKOCYTE ESTERASE ,URINE TRACE (Neg); NITRITES, URINE NEGATIVE (Neg); OCCULT BLOOD,URINE NEGATIVE (Neg); PROTEIN,URINE NEGATIVE (Neg); UROBILINOGEN,URINE 0.2 E.U/dL (0.2-1.0)
[2024-06-28 15:59] LABS: UA COLLECTION TYPE CLN CATCH MIDSTREAM
[2024-06-28 16:00] LABS: BACTERIA,URINE FEW /HPF (Neg); MUCUS STRANDS FEW /LPF (Neg); RBC,URINE 0-2 /HPF (0-2); RENAL CELLS, URINE FEW /HPF; SQUAMOUS EPITHELIAL CELL,UR MODERATE /LPF (FEW); TRANSITIONAL EPI CELLS,URINE FEW /HPF; WBC,URINE 20-30 /HPF (0-4)
[2024-06-28] MEDS ORDERED: CEPH-585 PO (16:57)
[2024-06-28] MEDS ORDERED: METH4TAB81 PO (16:57)
[2024-06-28] MEDS ORDERED: HYDR-3965 PO (16:57)
[2024-06-28 17:04] VITALS: RESP 18
== END 2024-06-28 17:05 | disposition home or self-care (01) ==
LOC: ER 12:24
DX: M54.42 Lumbago with sciatica, left side (principal); N39.0 Urinary tract infection, site not specified; J44.9 Chronic obstructive pulmonary disease, unspecified; E11.9 Type 2 diabetes mellitus without complications; F10.10 Alcohol abuse, uncomplicated; Z88.0 Allergy status to penicillin; Z79.899 Other long term (current) drug therapy
CPT/HCPCS: 81001; 87088; 87186; 96372; 99283; J1100; 87077